=== PATIENT | male | born 1950 | race Caucasian/White ===

== ENCOUNTER 2018-07-31 10:01 | Emergency (ER) | payer MEDICARE, OTHER ==
[~2018-07-31] VITALS: Wt 59.6 kg
[2018-07-31 10:08] VITALS: BP 113/67; PULSE 86; RESP 16
[2018-07-31] MEDS ORDERED: ALBUTEROL 0.083% (NEB) 2.5 MG/3 ML AMP HHN STA (10:27)
[2018-07-31] MEDS ORDERED: predniSONE 20 MG TAB PO ONE (10:30)
[2018-07-31] MEDS ORDERED: PRED20TA PO (11:34)
[2018-07-31] MEDS ORDERED: ALBU18HF INHALATION (11:34)
[2018-07-31] MEDS ORDERED: AZIT250T PO (11:34)
--- NOTE | 2018-07-31 11:37 | ERD ---
ER Documentation Chief Complaint Chief Complaint COUGH, CONGESTION X8 DAYS HPI 67-year-old male presents with a day history of productive cough and possible wheeze. Denies chest pain, fevers, vomiting, abdominal pain. Denies any history of asthma. ROS All systems reviewed and are negative except as per history of present illness. Medications Home Meds Active Scripts Albuterol Sulfate* (Ventolin HFA*) 18 Gm Hfa.aer.ad, 2 PUFF INHALATION Q4H, #1 INHALER Prov:NEVA JANG MD 07/31/18 Prednisone* (Prednisone*) 20 Mg Tab, 40 MG PO DAILY for 4 Days, TAB Start August 01, 2018 Prov:NEVA JANG MD 07/31/18 Azithromycin* (Zithromax*) 250 Mg Tablet, 250 MG PO .ZPACK DIRECTED, #6 TAB TAKE 500 MG (2 TABS) THE FIRST DAY THEN 250 MG (1 TAB) DAYS 2-5 Prov:NEVA JANG MD 07/31/18 Allergies Allergies: Coded Allergies: No Known Allergy (Unverified , 06/30/14) PMhx/Soc History of Surgery: No Anesthesia Reaction: No Hx Neurological Disorder: No Hx Respiratory Disorders: No Hx Cardiac Disorders: No Hx Psychiatric Problems: No Hx Miscellaneous Medical Probl: No Hx Alcohol Use: Yes (LIGHT USE) Hx Substance Use: No Hx Tobacco Use: Yes Smoking Status: Unknown if ever smoked FmHx Family History: No diabetes, No coronary disease, No other Physical Exam Vitals Vital Signs Date Temp Pulse Resp B/P (MAP) Pulse Ox O2 O2 Flow FiO2 Time Delivery Rate 07/31/18 84 20 21 11:01 07/31/18 97.5 86 16 113/67 98 10:08 (82) Physical Exam Const: No acute distress Head: Atraumatic Eyes: Normal Conjunctiva ENT: Normal External Ears, Nose and Mouth. TMs and oropharynx normal. Neck: Full range of motion. No meningismus. Resp: Clear to auscultation bilaterally. Coarse cough with mild wheezing. No significant wheeze at rest no rales or retractions appreciated. Cardio: Regular rate and rhythm, no murmurs Abd: Soft, non tender, non distended. Normal bowel sounds Skin: No petechiae or rashes Back: No midline or flank tenderness Ext: No cyanosis, or edema Neur: Awake and alert Psych: Normal Mood and Affect Results 24 hrs Current Medications Medications Dose Sig/Beena Start Time Status Last (Trade) Ordered Route PRN Stop Time Admin Dose Reason Admin Prednisone 40 mg ONCE ONCE 07/31/18 DC 07/31/18 (Prednisone) PO 10:30 10:42 07/31/18 10:31 Albuterol 2.5 mg ONCE STAT 07/31/18 DC 07/31/18 (Proventil HHN 10:27 11:00 0.083% (Neb)) 07/31/18 10:28 Procedures/MDM She presents with URI symptoms worsening over the last 8 days. He has mild wheezing. Given the duration and productive cough we will treat empirically with Zithromax, prednisone, Ventolin. Patient given Ventolin treatment and prednisone 40 mg by mouth in ER. The patient was stable with no new complaints during the ER course. Clinically, there is no current evidence to suggest meningitis, sepsis, acute abdomen, pneumonia, stroke, acute coronary syndrome, pulmonary embolism, aortic dissection or any other emergent condition appearing to require further evaluation or hospitalization. Patient counseled regarding my diagnostic impression and care plan. Prior to discharge all questions answered. Pt agrees with treatment plan and understands strict return precautions. Pt is instructed to follow up with primary care provider within 24- 48 hours. Precautionary instructions provided including instructions to return to the ER if not improving or for any worsening or changing symptoms or concerns. Departure Diagnosis: Primary Impression: Upper respiratory infection URI type: unspecified URI Qualified Codes: J06.9 - Acute upper respiratory infection, unspecified Condition: Stable Patient Instructions: Bronchitis With Wheezing (Adult) Additional Instructions: Cheque otro vez con soliman doctor primario en el proximo villegas or regresa para mas o nueva simptomas. NEVA JANG MD Jul 31, 2018 11:37
== END 2018-07-31 11:55 | disposition home or self-care (01) ==
LOC: FTE 10:01
DX: J06.9 Acute upper respiratory infection, unspecified (principal); Z87.891 Personal history of nicotine dependence
CPT/HCPCS: 94664; 99283; J7512